=== PATIENT | male | born 1990 | race Caucasian/White ===

== ENCOUNTER 2018-11-12 10:03 | Emergency (ER) | payer OTHER ==
[~2018-11-12] VITALS: Ht 182.9 cm; Wt 120.7 kg
[2018-11-12] MEDS ORDERED: IV NORMAL SALINE 1,000ML 1,000 ML IV SCH (10:19)
--- NOTE | 2018-11-12 10:25 | PHYS DOC ---
Past History Past Medical History: Hypertension Past Surgical History: Appendectomy Smoking: Non-smoker Alcohol Use: None Drug Use: None Adult General Chief Complaint Chief Complaint: SHORTNESS OF BREATH HPI HPI Patient is a 28-year-old male presents with coughing, shortness of breath, syncopal versus near syncopal episode this morning. Patient had called out for his father, father found him unresponsive but patient became responsive while father was calling 911. Patient has had a cough for the past several days. He was started on beta blockers and diuretics approximately a week ago for high blood pressure. Denies fever. Cough is productive of yellow to green tinged sputum. No recent travel. No sick contacts. No chest pain or palpitations.[] Review of Systems Review of Systems Constitutional: Denies fever or chills [] Eyes: Denies change in visual acuity, redness, or eye pain [] HENT: Denies nasal congestion or sore throat [] Respiratory: See history of present illness[] Cardiovascular: No chest pain or palpitations[] GI: Denies abdominal pain, nausea, vomiting, bloody stools or diarrhea [] : Denies dysuria or hematuria [] Musculoskeletal: Denies back pain or joint pain [] Integument: Denies rash or skin lesions [] Neurologic: Denies headache, focal weakness or sensory changes [] Endocrine: Denies polyuria or polydipsia [] All other systems were reviewed and found to be within normal limits, except as documented in this note. Current Medications Current Medications Current Medications Medications (Trade) Dose Ordered Sig/[facility] Start Time Stop Time Status Last Admin Dose Admin Aspirin (Children'S Aspirin) 324 mg 1X ONCE 11/12/18 10:30 11/12/18 10:31 UNV Sodium Chloride 1,000 ml @ 1,000 mls/hr Q1H 11/12/18 10:11/12/18 11:18 UNV Physical Exam Physical Exam Constitutional: Well developed, well nourished, no acute distress, non-toxic appearance. [] HENT: Normocephalic, atraumatic, bilateral external ears normal, oropharynx moist, no oral exudates, nose normal. [] Eyes: PERRLA, EOMI, conjunctiva normal, no discharge. [] Neck: Normal range of motion, no tenderness, supple, no stridor. [] Cardiovascular:Heart rate is tachycardic with a regular rhythm, no murmur [] Lungs & Thorax: Bilateral breath sounds clear to auscultation [] Abdomen: Bowel sounds normal, soft, no tenderness, no masses, no pulsatile masses. [] Skin: Warm, dry, no erythema, no rash. [] Back: No tenderness, no CVA tenderness. [] Extremities: No tenderness, no cyanosis, no clubbing, ROM intact, no edema. [] Neurologic: Alert and oriented X 3, normal motor function, normal sensory function, no focal deficits noted. [] Psychologic: Affect normal, judgement normal, mood normal. [] Current Patient Data Vital Signs Vital Signs Date Time Temp Pulse Resp B/P (MAP) Pulse Ox O2 Delivery O2 Flow Rate FiO2 11/12/18 10:15 97.7 119 18 97 Room Air EKG EKG EKG shows a sinus tachycardia at 108 bpm, normal axis, QTC of 503 ms, inverted T waves in the anterior leads. No old EKGs available for comparison. Interpreted by me at 1040[] Radiology/Procedures Radiology/Procedures PROCEDURE: CHEST PA & LATERAL PA and lateral views of the chest. Comparison: None. Indication: Cough Findings: The heart size is normal. No pneumothorax or effusion. No air space or interstitial disease. The bony structures are intact. Impression: 1. No acute cardiopulmonary process. PROCEDURE: CT ANGIOGRAPHY CHEST CTA scan of the Chest with Contrast (Pulmonary Embolism protocol) 11/12/2018 Clinical History: Tachycardia, elevated d-dimer. Syncope. Technique: After the intravenous administration of 100 cc of Omnipaque 350, contiguous, 0.625 mm axial sections were obtained through the chest. 2 mm axial and 3D MIP coronal and sagittal reconstructed images were obtained. One or more of the following individualized dose reduction techniques were utilized for this study: 1. Automated exposure control. 2. Adjustment of the mA and/or kV according to patient size. 3. Use of iterative reconstruction technique. Findings: A saddle type pulmonary embolism is seen extending from the origin of the left and right pulmonary arteries to involve the right and left pulmonary arteries and their branches. This is small and nonocclusive within the proximal main pulmonary arteries but becomes more extensive within the distal pulmonary arteries and their branches. The heart is mildly enlarged. The thoracic aorta is mildly tortuous but tapers normally. Minimal dependent subsegmental atelectasis is seen involving both lungs. No area of consolidation is seen. No pneumothorax or pleural effusion is noted. IMPRESSION: Extensive pulmonary emboli are seen throughout both lungs as discussed above. These findings were discussed with Dr. Spencer.[] Course & Med Decision Making Course & Med Decision Making Pertinent Labs and Imaging studies reviewed. (See chart for details) ED course: Patient arrived, was placed in bed, and tolerated exam well. IV access was established and he was given IV fluids for the noted tachycardia. On finding that the d-dimer was elevated, patient continued to have a tachycardia so a CT scan was ordered. The return of the CT scan showed a large saddle pulmonary embolism. Patient was started on heparin. Consultation was made with his primary care physician who was on-call, who recommended the patient be transferred to [place]. Consultation was made with Dr. Michaud at [facility] who graciously accepted the patient. Findings and plan were discussed with the patient and family who voiced understanding. Family does not want patient to go to [place] due to issues that a different family member had at that facility. Consultation then was made with . Dr. Quevedo accepted. There was a delay in obtaining a bed at . Patient was transferred in improved condition. All questions were answered. Medical decision making: Patient has an extensive pulmonary embolism as noted in the CT scan. Concerned about the possibility of cor pulmonale. Patient is being transferred for higher level of care.[] Dragon Disclaimer Dragon Disclaimer This electronic medical record was generated, in whole or in part, using a voice recognition dictation system. Departure Departure: Impression: Primary Impression: Pulmonary embolism Disposition: 05 TRANSFER OTHER Condition: IMPROVED Referrals: OBED MI MD (PCP) Problem Qualifiers Primary Impression: Pulmonary embolism Pulmonary embolism type: saddle Chronicity: acute Acute cor pulmonale presence: unspecified Qualified Codes: I26.92 - Saddle embolus of pulmonary artery without acute cor pulmonale JOHN SPENCER DO Nov 12, 2018 10:25
--- NOTE | 2018-11-12 10:39 | RAD ---
PA and lateral views of the chest. Comparison: None. Indication: Cough Findings: The heart size is normal. No pneumothorax or effusion. No air space or interstitial disease. The bony structures are intact. Impression: 1. No acute cardiopulmonary process. Electronically signed by: Benito Toledo MD (11/12/2018 10:36 AM) [facility]
[2018-11-12] MEDS ORDERED: ASPIRIN 81 MG TAB.CHEW PO ONE (11:00)
[2018-11-12 11:05] LABS: ALBUMIN 4.5 g/dL (3.4-5.0); ALBUMIN/GLOBULIN RATIO 1.3 (1.0-1.7); CALCIUM 9.5 mg/dL (8.5-10.1); CREATININE 1.3 mg/dL (0.7-1.3); GFR 64.8; POTASSIUM 4.8 mmol/L (3.5-5.1); TOTAL PROTEIN 8.1 g/dL (6.4-8.2)
[2018-11-12 11:20] LABS: BASO % 0 % (0-3); EOS % 0 % (0-3); HEMATOCRIT 51.5 % (39.0-53.0); HEMOGLOBIN 17.2 g/dL (13.0-17.5); LYMPH % 10 % (24-48); MEAN CORPUSCULAR HEMOGLOBIN 29 pg (25-35); MEAN CORPUSCULAR HGB CONC 34 g/dL (31-37); MEAN CORPUSCULAR VOLUME 88 fL (79-100); MONO # 0.6 x10^3/uL (0.0-1.1); MONO % 6 % (0-9); NEUT % 83 % (31-73); PLATELET COUNT 166 x10^3/uL (140-400); RED BLOOD COUNT 5.86 x10^6/uL (4.30-5.70); RED CELL DISTRIBUTION WIDTH 13.8 % (11.5-14.5); WHITE BLOOD COUNT 9.6 x10^3/uL (4.0-11.0)
[2018-11-12 11:28] LABS: BACTERIA,URINE 0 /HPF (0-FEW); BILIRUBIN,URINE NEG (NEG); CLARITY,URINE CLEAR; COLOR,URINE YELLOW; GLUCOSE,URINE NEG (NEG); NITRITE,URINE NEG (NEG); RBC,URINE RARE /HPF (0-2); SQUAMOUS EPITHELIAL CELL,UR OCC /LPF; UROBILINOGEN,URINE 0.2 mg/dL (0.2 mg/dL); WBC,URINE 0 /HPF (0-4)
--- NOTE | 2018-11-12 11:42 | EKG ---
[address] [address] Test Date: 2018-11-12 Test Time: 10:36:25 Pat Name: ELLIS GUAJARDO Department: Room: Gender: M Irrigation Laborer: MARTHA : 1990 Requested By: JOHN HARRIS Order Number: [id number] Reading MD: Elijah Maria MD Measurements Intervals [place] Rate: 108 P: 56 MT: 114 QRS: 52 QRSD: 114 T: -47 QT: 372 QTc: 503 Interpretive Statements SINUS TACHYCARDIA ANTERIOR ISCHEMIA RBBB Electronically Signed On 11-23-2018 9:34:32 CDT by Elijah Maria MD
[2018-11-12] MEDS ORDERED: IOHEXOL 350 MG/ML 100 ML VIAL. IV ONE (12:30)
[2018-11-12] MEDS ORDERED: HEPARIN for IV BOLUS 10,000 UNIT/10 ML VIAL. IV PRN ×2 (12:45)
[2018-11-12] MEDS ORDERED: HEPARIN 25,000UTS/500ML PREMIX 500 ML IV PRN (12:45)
--- NOTE | 2018-11-12 12:45 | RAD ---
CTA scan of the Chest with Contrast (Pulmonary Embolism protocol) 11/12/2018 Clinical History: Tachycardia, elevated d-dimer. Syncope. Technique: After the intravenous administration of 100 cc of Omnipaque 350, contiguous, 0.625 mm axial sections were obtained through the chest. 2 mm axial and 3D MIP coronal and sagittal reconstructed images were obtained. One or more of the following individualized dose reduction techniques were utilized for this study: 1. Automated exposure control. 2. Adjustment of the mA and/or kV according to patient size. 3. Use of iterative reconstruction technique. Findings: A saddle type pulmonary embolism is seen extending from the origin of the left and right pulmonary arteries to involve the right and left pulmonary arteries and their branches. This is small and nonocclusive within the proximal main pulmonary arteries but becomes more extensive within the distal pulmonary arteries and their branches. The heart is mildly enlarged. The thoracic aorta is mildly tortuous but tapers normally. Minimal dependent subsegmental atelectasis is seen involving both lungs. No area of consolidation is seen. No pneumothorax or pleural effusion is noted. IMPRESSION: Extensive pulmonary emboli are seen throughout both lungs as discussed above. These findings were discussed with Dr. Spencer. Electronically signed by: Jason Cervantes MD (11/12/2018 12:42 PM) [facility]
[2018-11-12] MEDS ORDERED: HEPARIN for IV BOLUS 10,000 UNIT/10 ML VIAL. IV ONE (13:00)
[2018-11-12 13:31] LABS: BARBITURATES NEG (NEG); BENZODIAZEPINES NEG (NEG); CANNABINOIDS NEG (NEG); COCAINE NEG (NEG); METHADONE NEG (NEG); OPIATES NEG (NEG); PHENCYCLIDINE NEG (NEG)
[2018-11-12 13:32] LABS: AMPHETAMINE/METHAMPHETAMINE NEG (NEG)
[2018-11-12 15:28] VITALS: BP 160/100
== END 2018-11-12 16:33 | disposition short-term general hospital (02) ==
LOC: ER 10:03
DX: I26.92 Saddle embolus of pulmonary artery without acute cor pulmonale (principal); R55 Syncope and collapse; I10 Essential (primary) hypertension
CPT/HCPCS: 36415; 71046; 71275; 80053; 80307; 81001; 83690; 83735; 83880; 84443; 84484; 85025; 85379; 85610; 85730; 87040; 87205; 93005; 96361; 96365; 96366; 96376; 99285; J1644; Q9967; 87077; J7030

== ENCOUNTER 2019-02-01 19:24 | Emergency (ER) | payer OTHER ==
[~2019-02-01] VITALS: Ht 182.9 cm; Wt 111.1 kg
[2019-02-01 19:39] VITALS: BP 142/74
--- NOTE | 2019-02-01 19:58 | PHYS DOC ---
Past History Past Medical History: Hypertension, Other Additional Past Medical Histor: PE Past Surgical History: Appendectomy Smoking: Non-smoker Alcohol Use: None Drug Use: None Adult General Chief Complaint Chief Complaint: URINARY [facility] HPI 28-year-old male presents with penile irritation and increased urinary frequency. The patient thought he had some dirt on his penis so he grabbed a wet wipe with eucalyptus and menthol and rubbed his penis aggressively with it. He now has urinary frequency and irritation of the harper of his penis. He was concerned about this so he came to the emergency room. He denies fever or chills. He did not have dysuria or urinary frequency prior to rubbing with a wipe. He has no other complaints. Review of Systems Review of Systems Constitutional: Denies fever or chills [] Eyes: Denies change in visual acuity, redness, or eye pain [] HENT: Denies nasal congestion or sore throat [] Respiratory: Denies cough or shortness of breath [] Cardiovascular: No additional information not addressed in HPI [] GI: Denies abdominal pain, nausea, vomiting, bloody stools or diarrhea [] : Increased urinary frequency, penile irritation[] Musculoskeletal: Denies back pain or joint pain [] Integument: Denies rash or skin lesions [] Neurologic: Denies headache, focal weakness or sensory changes [] Endocrine: Denies polyuria or polydipsia [] All other systems were reviewed and found to be within normal limits, except as documented in this note. Allergies Allergies Allergies Coded Allergies Type Severity Reaction Last Updated Verified No Known Drug Allergies 11/12/18 No Physical Exam Physical Exam Constitutional: Well developed, well nourished, no acute distress, non-toxic appearance. [] HENT: Normocephalic, atraumatic, bilateral external ears normal, oropharynx moist, no oral exudates, nose normal. [] Eyes: PERRLA, EOMI, conjunctiva normal, no discharge. [] Neck: Normal range of motion, no tenderness, supple, no stridor. [] Cardiovascular:Heart rate regular rhythm, no murmur [] Lungs & Thorax: Bilateral breath sounds clear to auscultation [] Abdomen: Bowel sounds normal, soft, no tenderness, no masses, no pulsatile masses. [] Skin: Warm, dry, no erythema, no rash. [] Back: No tenderness, no CVA tenderness. [] Extremities: No tenderness, no cyanosis, no clubbing, ROM intact, no edema. [] Neurologic: Alert and oriented X 3, normal motor function, normal sensory function, no focal deficits noted. [] Psychologic: Affect normal, judgement normal, mood normal. : Harper of the penis is red and irritated consistent with irritation or friction burn. Not warm to touch.[] Current Patient Data Vital Signs Vital Signs Date Time Temp Pulse Resp B/P (MAP) Pulse Ox O2 Delivery O2 Flow Rate FiO2 02/01/19 19:39 98.4 70 18 98 Room Air EKG EKG [] Radiology/Procedures Radiology/Procedures [] Course & Med Decision Making Course & Med Decision Making Pertinent Labs and Imaging studies reviewed. (See chart for details) Patient does not of urinary tract infection. He has local irritation will resolve on its own. He is stable for discharge at this time. [] Dragon Disclaimer Dragon Disclaimer This electronic medical record was generated, in whole or in part, using a voice recognition dictation system. Departure Departure: Impression: Primary Impression: Irritation of penis Disposition: HOME, SELF-CARE Condition: STABLE Referrals: OBED MI MD (PCP) BOBBY MARTÍNEZ DO Feb 01, 2019 19:57
[2019-02-01 20:12] LABS: BACTERIA,URINE 0 /HPF (0-FEW); BILIRUBIN,URINE NEG (NEG); CLARITY,URINE CLEAR; COLOR,URINE YELLOW; GLUCOSE,URINE NEG (NEG); NITRITE,URINE NEG (NEG); RBC,URINE 0 /HPF (0-2); UROBILINOGEN,URINE 0.2 mg/dL (0.2 mg/dL); WBC,URINE 0 /HPF (0-4)
== END 2019-02-01 20:22 | disposition home or self-care (01) ==
LOC: ER 19:24
DX: N48.89 Other specified disorders of penis (principal); I10 Essential (primary) hypertension; Z86.711 Personal history of pulmonary embolism
CPT/HCPCS: 81001; 99283

== ENCOUNTER 2019-03-03 17:34 | Emergency (ER) | payer OTHER ==
[~2019-03-03] VITALS: Ht 182.9 cm; Wt 104.3 kg
--- NOTE | 2019-03-03 17:54 | PHYS DOC ---
Past History Past Medical History: Hypertension, Other Additional Past Medical Histor: PE (JOLIE PETERS Jr. DO) Past Surgical History: Appendectomy (JOILE PETERS Jr. DO) Smoking: Non-smoker Alcohol Use: None Drug Use: None (JOLIE PETERS Jr. DO) Adult General Chief Complaint Chief Complaint: RAPID HEART RATE HPI HPI Patient is a 28-year-old male who presents with complaint of palpitations that started at about a after 5 this evening. Patient states that he was at [employer] when he started feeling a pounding in his chest. He states that he checked his heart rate and his heart rate read 168 bpm. Patient does indicate that he has history of pulmonary embolism and is on Xarelto for it. He denies any chest pain. He states that it just felt like his heart was beating out of his chest. He states that symptoms are not nearly as severe right now. Patient states that he has not had this happen before.[] (JOLIE PETERS Jr. DO) Review of Systems Review of Systems Constitutional: Denies fever or chills [] Respiratory: Denies cough or shortness of breath [] Cardiovascular: No additional information not addressed in HPI [] Integument: Denies rash or skin lesions [] Neurologic: Denies headache, focal weakness or sensory changes [] All other systems were reviewed and found to be within normal limits, except as documented in this note. (JOLIE PETERS Jr. DO) Allergies Allergies Allergies Coded Allergies Type Severity Reaction Last Updated Verified No Known Drug Allergies 11/12/18 No (JOLIE PETERS Jr. DO) Physical Exam Physical Exam Constitutional: Well developed, well nourished, no acute distress, non-toxic appearance. [] HENT: Normocephalic, atraumatic, bilateral external ears normal, oropharynx mo ist, no oral exudates, nose normal. [] Eyes: PERRLA, EOMI, conjunctiva normal, no discharge. [] Neck: Normal range of motion, no tenderness, supple, no stridor. [] Cardiovascular: Tachycardic rate with regular rhythm[] Lungs & Thorax: Bilateral breath sounds clear to auscultation [] Abdomen: Bowel sounds normal, soft, no tenderness. [] Skin: Warm, dry, no erythema, no rash. [] Extremities: No tenderness, no cyanosis, no clubbing, ROM intact, no edema. [] Neurologic: Alert and oriented X 3, no focal deficits noted. [] (JOLIE PETERS Jr. DO) Current Patient Data Vital Signs Vital Signs Date Time Temp Pulse Resp B/P (MAP) Pulse Ox O2 Delivery O2 Flow Rate FiO2 03/03/19 17:39 112 21 152/89 (110) 99 Room Air (JOLIE PETERS Jr. DO) Lab Results Laboratory Tests Test 03/03/19 17:43 White Blood Count 4.7 x10^3/uL Red Blood Count 5.29 x10^6/uL Hemoglobin 15.2 g/dL Hematocrit 46.6 % Mean Corpuscular Volume 88 fL Mean Corpuscular Hemoglobin 29 pg Mean Corpuscular Hemoglobin Concent 33 g/dL Red Cell Distribution Width 14.5 % Platelet Count 156 x10^3/uL Neutrophils (%) (Auto) 74 % Lymphocytes (%) (Auto) 12 % Monocytes (%) (Auto) 12 % Eosinophils (%) (Auto) 1 % Basophils (%) (Auto) 1 % Neutrophils # (Auto) 3.4 x10^3uL Lymphocytes # (Auto) 0.6 x10^3/uL Monocytes # (Auto) 0.6 x10^3/uL Eosinophils # (Auto) 0.1 x10^3/uL Basophils # (Auto) 0.0 x10^3/uL Sodium Level 141 mmol/L Potassium Level 3.6 mmol/L Chloride Level 103 mmol/L Carbon Dioxide Level 24 mmol/L Anion Gap 14 Blood Urea Nitrogen 7 mg/dL Creatinine 1.1 mg/dL Estimated GFR (Cockcroft-Gault) 78.6 BUN/Creatinine Ratio 6 Glucose Level 106 mg/dL Calcium Level 8.9 mg/dL Total Bilirubin 0.7 mg/dL Aspartate Amino Transf (AST/SGOT) 21 U/L Alanine Aminotransferase (ALT/SGPT) 35 U/L Alkaline Phosphatase 69 U/L Troponin I Quantitative < 0.017 ng/mL Total Protein 7.8 g/dL Albumin 4.7 g/dL Albumin/Globulin Ratio 1.5 Current Medications Medications (Trade) Dose Ordered Sig/Justine Route PRN Reason Start Time Stop Time Status Last Admin Dose Admin Sodium Chloride 1,000 ml @ 1,000 mls/hr Q1H IV 03/03/19 18:00 03/03/19 18:59 03/03/19 18:14 (MINNIE BOYER MD) EKG EKG EKG demonstrates sinus tachycardia with a rate of 106.[] (JOLIE PETERS Jr., DO) Radiology/Procedures Radiology/Procedures [] (JOLIE PETERS Jr., DO) Radiology/[place] [address] IMAGING REPORT Signed PATIENT: ELLIS GUAJARDO ACCOUNT: [id number] : 1990 LOCATION: ER AGE: 28 SEX: M EXAM STATUS: REG ER ORD. PHYSICIAN: JOLIE PETERS Jr., DO REASON: palpitations PROCEDURE: PORTABLE CHEST 1V Exam: Chest one view INDICATION: Palpitations TECHNIQUE: Frontal view of the chest Comparisons: 11/12/2018 FINDINGS: The cardiomediastinal silhouette and pulmonary vessels are within normal limits. The lung and pleural spaces are clear. IMPRESSION: No acute cardiopulmonary process. Electronically signed by: Courtney Dowell MD (03/03/2019 6:28 PM) [facility] DICTATED AND SIGNED BY: COURTNEY DOWELL MD DATE: 03/03/191827 CC: JOLIE PETERS Jr., DO; OBED MI MD; MINNIE BOYER MD ~ (MINNIE BOYER MD) Course & Med Decision Making Course & Med Decision Making Pertinent Labs and Imaging studies reviewed. (See chart for details) Patient moved to room upon arrival was evaluated by your medical staff after which an IV was established and blood work was drawn. An EKG was obtained. At this time, workup is pending and patient is being signed out to oncoming ER physician at 6:00 PM. (JOLIE PETERS Jr., DO) Course & Med Decision Making Addendum by Dr. Minnie Boyer at 1851: I received care of patient from Dr. Peters at 1800. I followed up at the patient's blood testing and imaging which is unremarkable at this time. The patient's heart rate has improved to 81 and patient denies any symptoms at this time. Patient symptoms may be due to possible stress and anxiety as patient does mention that he is very concerned about his health after he had been diagnosed with a pulmonary embolism. Given IV fluids and was also given Tylenol for mild headache. Vital signs are stable at this time and patient is appropriate for discharge. Recommended follow-up with primary doctor tomorrow for reevaluation and recommended return to emergency department for any worsening symptoms. Patient was understanding and in agreement with treatment plan. (MINNIE BOYER MD) Dragon Disclaimer Dragon Disclaimer This electronic medical record was generated, in whole or in part, using a voice recognition dictation system. (JOLIE PETERS Jr. DO) Departure Departure: Impression: Primary Impression: Palpitations Disposition: 01 HOME, SELF-CARE Condition: IMPROVED Referrals: OBED MI MD (PCP) Patient Instructions: Palpitations Additional Instructions: Follow-up with your primary doctor tomorrow for reevaluation. Return to the emergency department for any worsening symptoms. JOLIE PETERS Jr. DO Mar 03, 2019 17:54 MINNIE BOYER MD Mar 03, 2019 18:53
[2019-03-03] MEDS ORDERED: IV NORMAL SALINE 1,000ML 1,000 ML IV SCH (18:00)
[2019-03-03 18:18] LABS: CALCIUM 8.9 mg/dL (8.5-10.1); CREATININE 1.1 mg/dL (0.7-1.3); GFR 78.6; POTASSIUM 3.6 mmol/L (3.5-5.1)
[2019-03-03] MEDS ORDERED: METO50TA29 PO (18:18)
[2019-03-03] MEDS ORDERED: AMLO5TAB10 PO (18:18)
[2019-03-03] MEDS ORDERED: RIVA20TA2 PO (18:18)
--- NOTE | 2019-03-03 18:18 | EKG ---
[address] [address] Test Date: 2019-03-03 Test Time: 17:43:49 Pat Name: ELLIS GUAJARDO Department: Room: Gender: M Spa Host: : 1990 Requested By: JOLIE OROSCO Order Number: [id number] Reading MD: Measurements Intervals [place] Rate: 106 P: 51 [place]: 132 QRS: 84 QRSD: 108 T: 32 QT: 338 QTc: 451 Interpretive Statements SINUS TACHYCARDIA INCOMPLETE RIGHT BUNDLE BRANCH BLOCK RVH WITH REPOLARIZATION ABNORMALITY ABNORMAL ECG RI6.01 No previous ECG available for comparison
[2019-03-03 18:24] LABS: ALBUMIN 4.7 g/dL (3.4-5.0); ALBUMIN/GLOBULIN RATIO 1.5 (1.0-1.7); TOTAL BILIRUBIN 0.7 mg/dL (0.2-1.0); TOTAL PROTEIN 7.8 g/dL (6.4-8.2)
[2019-03-03 18:25] LABS: BASO % 1 % (0-3); EOS # 0.1 x10^3/uL (0.0-0.7); EOS % 1 % (0-3); HEMATOCRIT 46.6 % (39.0-53.0); HEMOGLOBIN 15.2 g/dL (13.0-17.5); LYMPH # 0.6 x10^3/uL (1.0-4.8); LYMPH % 12 % (24-48); MEAN CORPUSCULAR HEMOGLOBIN 29 pg (25-35); MEAN CORPUSCULAR HGB CONC 33 g/dL (31-37); MEAN CORPUSCULAR VOLUME 88 fL (79-100); MONO # 0.6 x10^3/uL (0.0-1.1); MONO % 12 % (0-9); NEUT # 3.4 x10^3uL (1.8-7.7); NEUT % 74 % (31-73); PLATELET COUNT 156 x10^3/uL (140-400); RED BLOOD COUNT 5.29 x10^6/uL (4.30-5.70); RED CELL DISTRIBUTION WIDTH 14.5 % (11.5-14.5); WHITE BLOOD COUNT 4.7 x10^3/uL (4.0-11.0)
--- NOTE | 2019-03-03 18:30 | RAD ---
Exam: Chest one view INDICATION: Palpitations TECHNIQUE: Frontal view of the chest Comparisons: 11/12/2018 FINDINGS: The cardiomediastinal silhouette and pulmonary vessels are within normal limits. The lung and pleural spaces are clear. IMPRESSION: No acute cardiopulmonary process. Electronically signed by: Courtney Horta MD (03/03/2019 6:28 PM) [facility]
[2019-03-03] MEDS ORDERED: ACETAMINOPHEN 500 MG TABLET PO ONE (19:00)
[2019-03-03 19:10] VITALS: BP 138/83
== END 2019-03-03 19:10 | disposition home or self-care (01) ==
LOC: ER 17:34
DX: R00.2 Palpitations (principal); I10 Essential (primary) hypertension; Z86.711 Personal history of pulmonary embolism; Z90.89 Acquired absence of other organs
CPT/HCPCS: 36415; 71045; 80053; 84484; 85025; 93005; 99285-25; J7030